=== PATIENT | female | born 1970 | race African-American/Black ===

== ENCOUNTER 2017-09-17 20:47 | Emergency (ER) | payer OTHER ==
[~2017-09-17] VITALS: Ht 175.3 cm; Wt 93.6 kg
[2017-09-17 20:48] VITALS: BP 132/77; PULSE 49; RESP 16; TEMP 98.5; O2SAT 99
--- NOTE | 2017-09-17 21:28 | PD ---
HPI Chief Complaint: Exposure to Blood/Body Fluids Time Seen by Provider: 21:22 Travel History International Travel<30 days: No Contact w/Intl Traveler<30days: No Traveled to known affect area: No History of Present Illness HPI Patient is emergency department for evaluation after needle stick exposure. Patient states that after giving her patient shot and she went to close the safety on the syringe when it slipped causing the needle to stick her in the left thumb. Patient states she squeezed blood and cleaned off prior coming to the emergency department. Patient reports her tetanus shot is up to date. Patient's uncertain patient's HIV status was wanting to wait rapid HIV testing before considering starting HIV prophylaxis. Denies any pain with this. Denies anything making it better or worse. PFSH Past Medical History Narrative Medical Polycystic kidneys ?: Not Past Surgical History Hysterectomy: Yes Social History Alcohol Use: No Tobacco Use: No Substance Use: No Review of Systems Except as stated in HPI: all other systems reviewed are Neg Physical Exam Narrative GENERAL: Well-developed, overly nourished, in no acute distress, and non-ill appearing. SKIN: Tiny superficial puncture wound noted left thumb. There is no foreign body noted. HEAD: Atraumatic. Normocephalic. EYES: Pupils equal and round. EOMI. No scleral icterus. No injection or drainage. ENT: No nasal bleeding or discharge. Mucous membranes pink and moist. NECK: Trachea midline. Supple. No nuclear rigidity. RESPIRATORY: No accessory muscle use. No respiratory distress. MUSCULOSKELETAL: No obvious deformities. No clubbing. No cyanosis. No edema. Full range of motion. NEUROLOGICAL: Awake and alert. No obvious cranial nerve deficits. Motor grossly within normal limits. Normal speech. PSYCHIATRIC: Appropriate mood and affect; insight and judgment normal. Data Data Last Documented VS Vital Signs Date Time Temp Pulse Resp B/P (MAP) Pulse Ox O2 Delivery O2 Flow Rate FiO2 09/17/17 22:01 09/17/17 20:48 98.5 49 16 99 Room Air Orders Orders Ed Discharge Order (09/17/17 21:28) [facility] Medical Decision Making Medical Screen Exam Complete: Yes Emergency Medical Condition: Yes Differential Diagnosis Needle exposure, body fluid exposure, needlestick, other Narrative Course Patient in no obvious distress upon re-evaluation. Any questions/concerns in reference to patient diagnosis/condition discussed and clarified prior to patient's discharge. Reinforced sheer importance of close follow up with employee med. Instructed patient to return to ED immediately, if symptoms return /worsen. Patient showed understanding of above instructions. Further instructions and recommendations were detailed in discharge paperwork. Patient ambulated without difficulty out of ED at discharge. Diagnosis Primary Impression: Needle stick injury Referrals: Employ [facility] Patient Instructions: General Instructions, Needle Stick Injuries (ED) Additional Instructions: Follow-up with employee med in one to 2 days. Return to the emergency department if symptoms get worse. Disposition: 01 DISCHARGE HOME Condition: Stable [place] Sep 17, 2017 21:28
== END 2017-09-17 22:12 | disposition home or self-care (01) ==
LOC: NEPK 20:47
DX: S61.032A Puncture wound without foreign body of left thumb without damage to nail, initial encounter (principal); Z87.448 Personal history of other diseases of urinary system; W46.1XXA Contact with contaminated hypodermic needle, initial encounter; Y99.0 Civilian activity done for income or pay
CPT/HCPCS: 99281